=== PATIENT | female | born 1940 | race Caucasian/White ===

== ENCOUNTER 2018-12-13 17:48 | Inpatient (IN) | payer MEDICARE, BC ==
[~2018-12-13] VITALS: Ht 172.7 cm; Wt 71.5 kg
[2018-12-13 18:41] LABS: HEMATOCRIT 35.9 % (36.0-48.0); HEMOGLOBIN 12.4 g/dL (12-16); RBC 3.81 10x6/uL (4.00-5.40); WBC 7.2 10x3/uL (4.8-10.8)
[2018-12-13 18:42] LABS: BASOPHILS 0.8 % (0-2); EOSINOPHILS 2.5 % (0-7); IMMATURE GRANULOCYTES 0.1 % (0-5); LYMPHOCYTES 24.1 % (15-50); MCH 32.5 pg (26.0-34.0); MCHC 34.5 g/dL (31.0-37.0); MCV 94.2 fL (80.0-100.0); MEAN PLATELET VOLUME 10.4 fL (7.4-10.4); MONOCYTES 10.3 % (2-11); NEUTROPHILS 62.2 % (40-80); PLATELET COUNT 282 10x3/uL (130-400); RDW 11.9 % (11.5-14.5)
[2018-12-13 19:00] LABS: ALBUMIN 4.3 g/dL (3.4-5.0); ANION GAP 10.8 mmol/L (8-16); BILIRUBIN - TOTAL 0.68 mg/dL (0.2-1.3); CALCIUM 9.4 mg/dL (8.5-10.1); CARBON DIOXIDE 31.4 mmol/L (21.0-32.0); CREATININE - SERUM 1.2 mg/dL (0.6-1.3); MAGNESIUM - SERUM 2.1 mg/dL (1.8-2.4); POTASSIUM - SERUM 3.2 mmol/L (3.5-5.1); PROTEIN - SERUM 7.7 g/dL (6.4-8.2)
--- NOTE | 2018-12-13 19:00 | NUR ---
PT SON AT BEDSIDE INFORMED I HAD FAXED INFORMATION TO [facility] AND SON DENIES NEEDS. 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
[2018-12-13 19:12] LABS: APPEARANCE CLEAR (CLEAR); BACTERIA MODERATE /hpf (NEGATIVE); BILIRUBIN NEGATIVE (NEGATIVE); COLOR YELLOW (YELLOW); EPITHELIAL CELLS 0-5 /hpf (0-5); GLUCOSE NEGATIVE (NEGATIVE); KETONE LARGE mg/dL (NEGATIVE); NITRITE NEGATIVE (NEGATIVE); PROTEIN TRACE mg/dL (NEGATIVE); RED CELLS - URINE 0-5 /hpf (0-5); SPECIFIC GRAVITY 1.025 (1.005-1.020); UROBILINOGEN NORMAL (NORMAL)
[2018-12-13 19:19] LABS: UDS - AMPHET NEGATIVE QUAL (NEGATIVE); UDS - BARB NEGATIVE QUAL (NEGATIVE); UDS - BENZO NEGATIVE QUAL (NEGATIVE); UDS - COCAINE NEGATIVE QUAL (NEGATIVE); UDS - OPIATE NEGATIVE QUAL (NEGATIVE); UDS - PCP NEGATIVE QUAL (NEGATIVE); UDS - THC NEGATIVE QUAL (NEGATIVE)
--- NOTE | 2018-12-13 20:30 | NUR ---
PT ACCPETED PT AND SON INFORMED. INFORMED.
[2018-12-13 21:33] VITALS: BP 157/61
[2018-12-13 22:05] VITALS: BP 157/61
[2018-12-14 07:53] LABS: CHOL - HDL RATIO 2.4 ratio (2.3-4.1); CHOLESTEROL, TOTAL 180 mg/dL (0-200); HDL CHOLESTEROL 75 mg/dL (32-96); LDL CHOLESTEROL 95 mg/dL (0-100); LDL-HDL RATIO 1.3 ratio (1.5-3.5); TRIGLYCERIDE 50 mg/dL (30-200)
[2018-12-14 08:00] VITALS: BP 148/75
--- NOTE | 2018-12-14 11:05 | NUR ---
RECEIVED PT IN HALLWAY AT NURSES STATION. ALERT, CALM, UNCOOPERATIVE WITH STAFF, REFUSED TO GO TO DINING ROOM FOR B'FAST INITIALLY. PT. BECAME COMBATIVE WITH STAFF WHILE BEING RE-DIRECTED, HITTING STAFF. PT RE-DIRECTED TO THE DINING ROOM WHERE SHE REFUSED B'FAST AND SAT QUIETLY AT DINING TABLE.
[2018-12-14 14:55] VITALS: Ht 172.7 cm; Wt 71.5 kg
[2018-12-14 20:14] VITALS: BP 136/95
--- NOTE | 2018-12-14 22:02 | NUR ---
RECEIVED IN DINING ROOM. SOCIALIZING WITH PEERS. CALM AND COOPERATIVE WITH CARE AND ASSESSMENT. CONFUSED. NO WANDERING. REDIRECT AND REORIENT NEEDED. RESTING IN BED WITH EYES CLOSED AT THIS TIME. CONTINUE PLAN OF CARE.
[2018-12-15 07:00] VITALS: BP 126/68
[2018-12-15] MEDS ORDERED: NAMENDA5 MG PO (12:19)
[2018-12-15] MEDS ORDERED: SYNTHROID100 MCG PO (12:21)
[2018-12-15] MEDS ORDERED: FOLBIC RF TABL1 EACH PO (12:21)
[2018-12-15] MEDS ORDERED: DONEPEZIL HCL5 MG PO (12:23)
[2018-12-15] MEDS ORDERED: NORVASC5 MG PO (12:24)
[2018-12-15] MEDS ORDERED: VITAMIN D31000 UNIT PO (12:25)
[2018-12-15] MEDS ORDERED: COZAAR50 MG PO (12:26)
[2018-12-15] MEDS ORDERED: COZAAR25 MG PO (12:28)
[2018-12-15] MEDS ORDERED: PAXIL CR37.5 MG PO (12:28)
[2018-12-15] MEDS ORDERED: HYDROCHLOROTHIA25 MG PO (12:28)
--- NOTE | 2018-12-15 14:49 | HP ---
PATIENT: YIMI ALMAGUER MEDICAL RECORD: [id number] ACCOUNT: [id number] LOCATION:[facility] : 42 ADMISSION DATE: 12/13/18 PCP: MAYELIN ELLIOTT MD HISTORY AND PHYSICAL EXAMINATION IDENTIFYING DATA: The patient is 78 years old and she is admitted to the hospital on a voluntary basis. CHIEF COMPLAINT: Confusion. HISTORY OF PRESENT ILLNESS: The patient was brought to the Emergency Room by her son. She lives with her son and he has been unable to care for her because she has been agitated, yelling and paranoid. When interviewed about this, the patient becomes quite offended and tells me that she has had no such problems. Unfortunately, she does not know where she is or why she is here. PAST MEDICAL HISTORY: Significant for hypertension and hypothyroidism. PAST PSYCHIATRIC HISTORY: Significant for an established diagnosis of dementia, although I am not sure when the diagnosis was made or by whom. FAMILY HISTORY: Unknown. ALLERGIES: No known drug allergies. CURRENT MEDICATIONS: Unknown at this point. SOCIAL HISTORY: The patient is . Says she has 2 adult children. She denies any history of drug or alcohol abuse. 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 MENTAL STATUS EXAMINATION: The patient is awake, alert, and oriented to person only. Her mood is flat. Her affect is constricted. Thought processes are circumstantial. Memory, concentration, and abstraction abilities are severely impaired and she denies that she would seek to harm herself or others as well as overt psychotic symptoms. ASSETS: Supportive family members. LIABILITIES: Limited insight. DIAGNOSTIC IMPRESSION: Major neurocognitive disorder of the Alzheimer's type, hypertension, hypothyroidism. PLAN: At this time, the patient will be admitted to the hospital for comprehensive medical, psychological, and social evaluation. She will be treated with both mood stabilizing and memory enhancing medications. Her long-term prognosis is guarded. TRANSINT:[id number] Voice Confirmation ID: [id number] DOCUMENT ID: [id number] HISTORY AND PHYSICAL [id number] YIMI ALMAGUER PETER MD at 1449 CC: [id number] DICTATION DATE: 12/14/18 1605 SITE WORKER: 12/14/182038 ADM IN [place] [id number] [place] [address]
--- NOTE | 2018-12-15 18:07 | NUR ---
PATIENT'S DAUGHTER PHONED EARLIER THIS SHIFT TO CHECK ON PATIENT'S CONDITION. PATIENT ALERT, CALM, CONFUSED, BUT COOPERATIVE. NO AGGRESSION NOTED. COOPERATIVE WITH STAFF AND PLAN OF CARE. CONT POC DIRECTED.
--- NOTE | 2018-12-15 18:37 | NUR ---
PATIENT'S [id number] PHONED AND SPOKE TO PATIENT.
--- NOTE | 2018-12-15 20:41 | NUR ---
RECEIVED IN DAYROOM. SITTING IN A CHAIR SOCIALIZING WITH PEERS. CALM AND COOPERATIVE WITH CARE AND ASSESSMENT. REDIRECT AND REORIENT NEEDED. RESTING IN BED WITH EYES CLOSED. CONTINUE PLAN OF CARE
[2018-12-15 20:59] VITALS: BP 167/90
[2018-12-16 08:00] VITALS: BP 134/67
--- NOTE | 2018-12-16 12:07 | PN ---
PATIENT:YIMI ALMAGUER MEDICAL RECORD: [id number] LOCATION:[facility] ADMISSION DATE: 12/13/18 PROGRESS NOTE DATE OF SERVICE: 12/15/2018 SUBJECTIVE: The patient's case was discussed with staff. She has no new complaint. OBJECTIVE: The patient is in good behavioral control with limited insight about her condition. She has not been aggressive. ASSESSMENT: No change in diagnoses. PLAN: Supportive and educational interventions were made. Long-term prognosis is guarded. TRANSINT:[id number] Voice Confirmation ID: [id number] DOCUMENT ID: [id number] BRONSON CHACKO MD at 1207 CC: [id number] DICTATION DATE: 12/15/18 1505 OPERATIONS CONSULTANT: 12/16/18 0145 ADM IN [address] [address]
--- NOTE | 2018-12-16 18:28 | NUR ---
PATIENT COOPERATIVE THIS SHIFT, CONFUSED, POOR MEMORY, INITIALLY UNCOOPERATIVE WITH MEDS, BUT WAS EVENTUALLY COMPLIANT. COOPERATIVE WITH PLAN OF CARE. CONT POC DIRECTED.
--- NOTE | 2018-12-16 22:19 | NUR ---
RECEIVED IN PATIENT ROOM. GETTING READY FOR BED. CALM AND COOPERATIVE WITH CARE AND ASSESSMENT. NO WANDERING. NO EXIT SEEKING. NO AGGRESSION. REDIRECT AND REORIENT NEEDED. RESTING IN BED WITH EYES CLOSED AT THIS TIME. CONTINUE PLAN OF CARE.
[2018-12-16 22:48] VITALS: BP 140/70
[2018-12-17 06:45] LABS: ANION GAP 15.2 mmol/L (8-16); CALCIUM 9.3 mg/dL (8.5-10.1); CARBON DIOXIDE 29.1 mmol/L (21.0-32.0); POTASSIUM - SERUM 3.3 mmol/L (3.5-5.1)
[2018-12-17 08:05] VITALS: BP 113/80
--- NOTE | 2018-12-17 09:33 | NUR ---
B) The patient is awake. She is calm, she has poor insight into her situation. She ambulates independently. She is interacting in groups and activities. I) Provide prescribed meds. R) The patient is compliant with meds. P) Continue POC.
--- NOTE | 2018-12-17 10:59 | NUR ---
NUTRITION F/U PT TOLERATING REG DIET WITH 75 TO 100% INTAKE RECENT MEALS. NO NEW WT TO ASSESS. +BM 12/16/18. WILL HONOR FOOD PREFERENCES, MONITOR PO INTAKE AND WT. RD FOLLOWING
--- NOTE | 2018-12-17 11:37 | NUR ---
SPOKE WITH PATIENT DAUGHTER SERENA ABOUT HOW HER MOTHER WAS DOING. THIS NURSE GAVE HER AN OVERVIEW OF HER DAY AND SHE IS VERUY PLESANT WITH STAFF AND SLEPT WELL. DAUGHTER WAS PLEASED WITH PROGRESS, SLEEP TIME AND WANTED TO LET HER KNOW "SHE LOVES HER AND WILL TALK TO HER THIS AFTERNOON"
--- NOTE | 2018-12-17 14:38 | PN ---
PATIENT:YIMI ALMAGUER MEDICAL RECORD: [id number] LOCATION:[facility] ADMISSION DATE: 12/13/18 PROGRESS NOTE DATE OF SERVICE: 12/16/2018 SUBJECTIVE: The patient's case was discussed with staff. She has no new complaint. OBJECTIVE: The patient is in good behavioral control, but quite confused. ASSESSMENT: Dementia. PLAN: The patient is taking Paxil. Paxil is the most anticholinergic of the SSRIs. Although I do not think it is a major contributing factor to her cognitive impairment, I think it is important enough that it be discontinued. Along these lines, I am going to taper the dose a little further down to 10 mg and we will probably discontinue it in 1-2 days. So far, her behavior has been good. I think this is likely related to the fact that she is in a structured environment. TRANSINT:[id number] Voice Confirmation ID: [id number] DOCUMENT ID: [id number] BRONSON CHACKO MD at 1438 CC: [id number] DICTATION DATE: 12/16/18 1252 EMR IMPLEMENTATION SPECIALIST: 12/16/18 1318 ADM IN [place] [place] [address]
--- NOTE | 2018-12-17 17:45 | NUR ---
PT IS VERY FRIENDLY WITH STAFF AND IS HELPED ORGANIZE OTHER ROOM AT THIS TIME. VERY PLESANT WITH PEERS WELL. NO BEHAVIORS NOTED.
--- NOTE | 2018-12-17 23:46 | NUR ---
B) Patient is alert and oriented to person, very helpful, will pickup sort and put away thing wheather it needs it or not, I) Administered scheduled medications as ordered, redirected as needed, R) Mediation compliant, pleasant and friendly P) Continue plan of care.
[2018-12-18 00:43] VITALS: BP 134/68
--- NOTE | 2018-12-18 07:29 | NUR ---
B) The patient is awake and alert, she has poor insight into her situation. She ambulates independently. She is oriented to name, but not place or time. I) Provide prescribed meds. R) The patient is compliant with meds. P) Continue POC.
[2018-12-18 08:44] VITALS: BP 143/69
[2018-12-18 14:27] LABS: ANION GAP 12.8 mmol/L (8-16); CALCIUM 9.3 mg/dL (8.5-10.1); CARBON DIOXIDE 29.3 mmol/L (21.0-32.0); CREATININE - SERUM 1.2 mg/dL (0.6-1.3); POTASSIUM - SERUM 3.1 mmol/L (3.5-5.1)
--- NOTE | 2018-12-18 15:03 | PN ---
PATIENT:YIMI ALMAGUER MEDICAL RECORD: [id number] LOCATION:[facility] ADMISSION DATE: 12/13/18 PROGRESS NOTE DATE OF SERVICE: 12/17/2018 SUBJECTIVE: The patient's case was discussed with staff. She has no new complaint. OBJECTIVE: The patient is in good behavioral control with limited insight about her condition. She has not been aggressive. ASSESSMENT: Dementia. PLAN: The patient's Paxil will be discontinued. Her long-term prognosis is guarded. So far, her behaviors have been excellent. TRANSINT:[id number] Voice Confirmation ID: [id number] DOCUMENT ID: [id number] BRONSON CHACKO MD at 1503 CC: [id number] DICTATION DATE: 12/17/18 1448 MEDIA COORDINATOR: 12/17/18 2313 ADM IN [facility] [address] [place] [address]
--- NOTE | 2018-12-18 20:45 | NUR ---
B.) PT IS ALERT AND ORIENTED TO SELF, SITUATION AND PLACE. SHE IS AMBULATORY AND PLEASANT WITH STAFF AND PEERS. I.) REDIRECT NEEDED. PROVIDED PM MEDICATIONS. R.) EASY TO REDIRECT. COMPLIANT WITH ALL MEDICATIONS. P.) CONTINUE PLAN OF CARE
[2018-12-19 08:47] VITALS: BP 137/71
--- NOTE | 2018-12-19 10:24 | NUR ---
B) The patient is awake and alert, she is pleasant she wants to help staff to clean and assist other patients with their needs. She says she likes to stay busy to help the day pass by. She ambulates independently. I) Provide prescribed meds. R) The patient is compliant with meds. P) Continue POC.
--- NOTE | 2018-12-19 12:31 | PN ---
PATIENT:YIMI ALMAGUER MEDICAL RECORD: [id number] LOCATION:[facility] ADMISSION DATE: 12/13/18 PROGRESS NOTE DATE OF SERVICE: 12/18/2018 SUBJECTIVE: The patient's case was discussed with staff. She has no new complaint. OBJECTIVE: The patient is not eating adequately, but when questioned about this, insists that she is. ASSESSMENT: Dementia. PLAN: The patient will be given Megace to assist with appetite stimulation. Her long-term prognosis is guarded. Both supportive and educational interventions were made. TRANSINT:[id number] Voice Confirmation ID: [id number] DOCUMENT ID: [id number] BRONSON CHACKO MD at 1231 CC: [id number] DICTATION DATE: 12/18/18 1546 DOUGHNUT MAKER: 12/18/18 2247 ADM IN [facility] [address] [place] [address]
[2018-12-19 21:35] VITALS: BP 160/64
--- NOTE | 2018-12-19 21:54 | NUR ---
B.) PT IS ALERT AND ORIENTED TO SELF ONLY. SHE HAS POOR INSIGHT INTO HER SITUATION. SHE IS ADL INDEPENDENT. SHE IS ABLE TO MAKE HER NEEDS KNOWN. SHE IS PLEASANT AND COOPERATIVE WITH PEERS AND STAFF. I.) PROVIDED PM MEDICATIONS. REDIRECT NEEDED. R.) COMPLIANT WITH ALL MEDICATIONS. EASY TO REDIRECT. P.) CONTINUE PLAN OF CARE
[2018-12-20 08:00] VITALS: BP 126/63
--- NOTE | 2018-12-20 12:01 | PN ---
PATIENT:YIMI ALMAGUER MEDICAL RECORD: [id number] LOCATION:[facility] ADMISSION DATE: 12/13/18 PROGRESS NOTE DATE OF SERVICE: 12/19/2018 SUBJECTIVE: The patient's case was discussed with staff. She has no new complaint. OBJECTIVE: The patient is in good behavioral control with limited insight about her condition. She does tolerate her medicines well. ASSESSMENT: Dementia. PLAN: Current medicines and therapies have been reviewed, both will be maintained. I anticipate she can be transitioned out of the hospital soon if this level of improvement continues. TRANSINT:[id number] Voice Confirmation ID: [id number] DOCUMENT ID: [id number] BRONSON CHACKO MD at 1201 CC: [id number] DICTATION DATE: 12/19/18 142 INSEAMER: 12/19/18 211 ADM IN [facility] [address] [place] [address]
[2018-12-20 20:04] VITALS: BP 157/68
--- NOTE | 2018-12-20 20:33 | NUR ---
RECEIVED IN HALLWAY SITTING OUTSIDE OF NURSES STATION IN A WHEELCHAIR. CALM AND COOPERATIVE WITH CARE AND ASSESSMENT. SOCIAL WITH PEERS. REDIRECT AND REORIENT NEEDED. RESTING IN BED WITH EYES CLOSED. CONTINUE PLAN OF CARE
[2018-12-21 08:00] VITALS: BP 128/68
[2018-12-21 11:12] LABS: ANION GAP 12.1 mmol/L (8-16); CARBON DIOXIDE 31.6 mmol/L (21.0-32.0); CREATININE - SERUM 1.2 mg/dL (0.6-1.3); POTASSIUM - SERUM 3.7 mmol/L (3.5-5.1)
--- NOTE | 2018-12-21 13:32 | NUR ---
PT SITTING IN DAYRROM WITH PEERS. ALERT TO PERSON. PT HAS LITTLE INSIGHT INTO HER SITUATION. PT IS PLEASANT BUT VERY CONFUSED. CALM AND COOPERATIVE WITH ASSESSMENT. MED COMPLIANT. NO BEHAVIORS NOTED. WILL CPOC.
--- NOTE | 2018-12-21 15:34 | PN ---
PATIENT:YIMI ALMAGUER MEDICAL RECORD: [id number] LOCATION:[facility] ADMISSION DATE: 12/13/18 PROGRESS NOTE DATE OF SERVICE: 12/20/2018 SUBJECTIVE: The patient's case was discussed with staff. She has no new complaint. OBJECTIVE: The patient is in good behavioral control. She has poor insight about her situation. ASSESSMENT: Dementia. PLAN: Current medicines and therapies have been reviewed and will be maintained. Long-term prognosis is guarded. TRANSINT:[id number] Voice Confirmation ID: [id number] DOCUMENT ID: [id number] BRONSON CHACKO MD at 1534 CC: [id number] DICTATION DATE: 12/20/18 1211 CURATORIAL SPECIALIST: 12/20/18 1742 ADM IN [place] [id number] [place] [address]
[2018-12-21] MEDS ORDERED: MEGACE40 MG PO (15:44)
--- NOTE | 2018-12-21 18:15 | NUR ---
DISCHARGED HOME VIA CAR WITH DAUGHTER IN LAW. BELONGINGS GIVEN TO PATIENT. DISCHARGE WEIGHT DONE. DISCHARGE INSTRUCTIONS PACKET GIVEN TO FAMILY.
--- NOTE | 2018-12-22 14:36 | PN ---
PATIENT:YIMI ALMAGUER MEDICAL RECORD: [id number] LOCATION:[facility] ADMISSION DATE: 12/13/18 PROGRESS NOTE DATE OF SERVICE: 12/21/2018 SUBJECTIVE: The patient's case was discussed with staff. She has no new complaint. OBJECTIVE: The patient is in good behavioral control with limited insight about her condition. She does tolerate her medicines well. ASSESSMENT: Dementia. PLAN: The patient is going to be discharged home with her family. I do have concerns about her wandering away from the house. The family in my view was primarily in need of disease education and education about management of individuals with this disease. Also, the patient had gone from assisted living to home with her family, to the family then moving to another home with her in a very short period of time. This is completely understandable these things happen by necessity, but it is certainly confusing to a dementia patient to constantly have the environment changed. In my opinion, the patient has an advanced disease. Her behavior problems are not serious. I am not going to take an aggressive approach to them and the family just simply needed some education about management and disease process. The patient will be discharged home this afternoon. TRANSINT:[id number] Voice Confirmation ID: [id number] DOCUMENT ID: [id number] BRONSON CHACKO MD at 1436 CC: [id number] DICTATION DATE: 12/21/18 161 HOUSE WRECKER: 12/21/18 2303 DIS IN 12/21/18 [facility] [address] [place] [address]
--- NOTE | 2018-12-29 11:23 | DS ---
PATIENT:YIMI ALMAGUER :42 MEDICAL RECORD: [id number] DISCHARGE SUMMARY ADMISSION DATE: 12/13/18 DISCHARGE DATE: 12/21/18 IDENTIFYING DATA: The patient is 78 years old and she was admitted to the hospital on a voluntary basis because of confusion. The patient was brought to the Emergency Room by her son and he was unable to care for her. She had been agitated, yelling, and paranoid. Upon interview, the patient was quite confused and had no recollection for these problems. HOSPITAL COURSE: The patient was admitted to the hospital and fully evaluated from both a medical, psychological, and social standpoint. She was treated with both memory enhancing and mood stabilizing medications. She showed significant improvement and was subsequently transitioned to a long-term care setting. DISCHARGE DIAGNOSES: 1. Major neurocognitive disorder of the Alzheimer's type. 2. Hypertension. 3. Hypothyroidism. PLAN: The patient is to have followup with her primary care retirement physician. Her long-term prognosis is guarded. TRANSINT:[id number] Voice Confirmation ID: [id number] DOCUMENT ID: [id number] BRONSON CHACKO MD at 1123 CC: [id number] DICTATION DATE: 12/28/18 1648 ENTERTAINMENT DANCER: 12/29/18 0205 DIS IN 12/21/18 [place] [address] [place] [address]
== END 2018-12-21 08:15 | disposition home or self-care (01) | DRG 57 ==
LOC: D.ER 17:48 → D.PSYCH 20:45
PROVIDERS: Emergency Medicine; Family Medicine; ADMIT Psychiatry & Neurology Psychiatry; ATTEND Psychiatry & Neurology Psychiatry
DX: G30.9 Alzheimer's disease, unspecified (principal); F02.81 Dementia in other diseases classified elsewhere, unspecified severity, with behavioral disturbance; I10 Essential (primary) hypertension; E03.9 Hypothyroidism, unspecified; F32.9 Major depressive disorder, single episode, unspecified; K21.9 Gastro-esophageal reflux disease without esophagitis; K58.9 Irritable bowel syndrome, unspecified; E87.6 Hypokalemia

== ENCOUNTER 2019-01-26 08:00 | Outpatient (CLI) | payer MEDICARE ==
[2018-12-14 14:55] VITALS: BMI 23.6
[~2019-01-26 08:00] MED LIST: COZAAR25 MG PO; COZAAR50 MG PO; DONEPEZIL HCL5 MG PO; FOLBIC RF TABL1 EACH PO; HYDROCHLOROTHIA25 MG PO; MEGACE40 MG PO; NAMENDA5 MG PO; NORVASC5 MG PO; PAXIL CR37.5 MG PO; SYNTHROID100 MCG PO; VITAMIN D31000 UNIT PO
== END 2019-01-26 23:59 | disposition home or self-care (01) ==
LOC: D.MAMMO 08:00
PROVIDERS: ATTEND Family Medicine
DX: Z12.31 Encounter for screening mammogram for malignant neoplasm of breast (principal)

== ENCOUNTER → 2019-05-05 09:00 | Outpatient (CLI) | payer MEDICARE, BC ==
[2018-12-14 14:55] VITALS: BMI 23.6
[2019-05-05 10:32] LABS: CALCIUM 9.2 mg/dL (8.5-10.1); CARBON DIOXIDE 33.6 mmol/L (21.0-32.0); CREATININE - SERUM 1.3 mg/dL (0.6-1.3); THYROID STIMULATING HORMONE 0.18 uIU/mL (0.36-3.74)
[2019-05-05 10:55] LABS: POTASSIUM - SERUM 2.6 mmol/L (3.5-5.1)
== END | disposition home or self-care (01) ==
LOC: D.CT 09:00
PROVIDERS: ATTEND Internal Medicine Gastroenterology
DX: R10.30 Lower abdominal pain, unspecified (principal); R19.7 Diarrhea, unspecified; R63.4 Abnormal weight loss; R63.0 Anorexia

== ENCOUNTER → 2019-05-07 12:52 | Outpatient (CLI) | payer MEDICARE, BC ==
[2018-12-14 14:55] VITALS: BMI 23.6
== END | disposition home or self-care (01) ==
LOC: D.LAB 12:52
PROVIDERS: ATTEND Internal Medicine Gastroenterology
DX: E87.6 Hypokalemia (principal)